=== PATIENT | male | born 1965 | race Caucasian/White ===

== ENCOUNTER 2017-09-05 06:27 | Emergency (ER) | payer BC ==
[2017-09-05] MEDS ORDERED: TETRACAINE HCL 150 DROP BTL ONE (06:38)
[2017-09-05] MEDS ORDERED: SULFACETAMIDE SODIUM 150 DROP BTL ONE (06:53)
[2017-09-05] MEDS: SULFACETAMIDE SODIUM 150 DROP BTL RIGHTEYE ONE (06:54)
--- NOTE | 2017-09-05 07:09 | ERNOTE ---
ENT HPI Presenting Symptoms: foreign body Time Seen by Provider: 09/05/17 06:37 Source: patient Exam Limitations: no limitations - Immun/Allergies/Home Medications Immunizations: IMMUNIZATION HX Immunizations Up to Date Yes History of Influenza Vaccine Yes Hx Pneumococcal Vaccination No Allergies/Adverse Reactions: Allergies Allergy/AdvReac Type Severity Reaction Status Date / Time No Known Allergies Allergy Verified 09/05/17 06:36 Home Medications: HOME MEDICATIONS Lisinopril [Prinivil] 40 mg PO DAILY 08/14/14 [Last Taken Unknown] Tamsulosin HCl [Flomax] 0.4 mg PO DAILY 09/05/17 [Last Taken Unknown] - History of Present Illness Narrative: Pt got dust in his eye yesterday and tried to wash it out. This morning it feels worse. Severity: Present: moderate ENT Location: Present: eye (R) Prearrival Treatment: Present: flushing eys Modifying Factors - Improves: Reports: nothing Review of Systems - Review of Systems Constitutional: Absent: recent illness, fever EYE: Present: see HPI, tearing ENT: Absent: nose congestion Skin: Present: dryness - upper lid Endocrine: Present: no symptoms reported Hematologic/Lymphatic: Present: no symptoms reported - Patient's Past Medical History Patient History - Medical: No pertinent hx Patient History - Cardiac/Respiratory: Hypertension, Other Patient History - Cancer: No Hx of Cancer Patient History - Surgical Procedures: Orthopedic Patient History - Other: None - Social History Living Situations: home Psych History: No pertinent hx Smoking Status: Current every day smoker Alcohol Use: none Drug Use: none - Immunizations Immunizations Up to Date: Yes Hx Pneumococcal Vaccination: No History of Influenza Vaccine: Yes Physical Exam - Physical Exam General Appearance: Present: wd/wn, alert, no apparent distress Head Exam: Present: normal inspection, no evidence of injury Eye Exam: Normal inspection: left, PERRL: bilateral, EOMI: bilateral, Sclera injection: right, Eye drainage: right - mild mucoid Ears, Nose, Throat: Present: normal ENT inspection Neck: Present: normal inspection, nontender, supple Respiratory: Present: no respiratory distress, no accessory muscle use Neurological Exam: Present: alert, oriented, normal mood/affect, no motor/ sensory deficits Skin Exam: Present: normal color, warm/dry, other - irritation of right upper eyelid ED Progress - Vital Signs Vital Signs: Vital Signs 09/05/17 06:31 Temperature 36.7 C Pulse Rate 95 Respiratory 17 Rate Blood Pressure 157/97 O2 Sat by Pulse 99 Oximetry - Progress/Reassessment Chief Complaint: Eye Injury/Trauma Procedures Eye Location: right eye Tetracaine Drops Administered: Yes Eye - Cornea: Right: examined w/fluorescein, fluorescein dye uptake - approx 50 % of cornea, abrasion - approx 50% of cornea, superficial Eye FB Removal: other - No FB found, upper lid inverted Antibiotic Ointment/Drps Admin: right eye Complications: Pt griselda procedure well Plan - Plan Plan: Will contact Ophthalmology for close follow up and contact patient with appointment details. Departure Clinical Impression: Corneal abrasion, right Qualifiers: Encounter type: initial encounter Qualified Code(s): S05.01XA - Injury of conjunctiva and corneal abrasion without foreign body, right eye, initial encounter - Departure Disposition: Home Follow Up Needed Condition: Fair Instructions: Corneal Abrasion, [id number] Additional Instructions: Continue to use the eye drops every 3 hours until seen by ophthalmology and they can decide on continued treatment. We will call ophthalmology and call you with the appointment Referrals: Genesis Liu CNP [Primary Care Provider] - Malik Pisano MD [Staff Physician] -
[2017-09-06 09:15] VITALS: BP 157/97
== END 2017-09-05 07:08 | disposition home or self-care (01) ==
LOC: ER 06:27
DX: S05.01XA Injury of conjunctiva and corneal abrasion without foreign body, right eye, initial encounter (principal); I10 Essential (primary) hypertension; F17.200 Nicotine dependence, unspecified, uncomplicated